=== PATIENT | male | born 1985 | race Caucasian/White ===

== ENCOUNTER 2021-04-03 20:37 | Emergency (ER) | payer SELFPAY ==
[~2021-04-03] VITALS: Ht 182.9 cm; Wt 77.1 kg
--- NOTE | 2021-04-03 20:41 | NUR ---
Pt not in waiting room.
--- NOTE | 2021-04-03 21:01 | NUR ---
Patient in bed, no acute distress noted. C/o bilat leg pain.
--- NOTE | 2021-04-03 21:20 | NUR ---
Patient becoming agitated, requested to remain in his room and await ER MD. Patient states " I hit some bad meth, I want to make sure Im okay".
--- NOTE | 2021-04-03 21:54 | NUR ---
Patient seen by ER MD. Awaiting further disposition for this patient.
--- NOTE | 2021-04-03 22:00 | NUR ---
Patient discharged to home in stable condition. Written and verbal after care instructions given. Patient verbalizes understanding of instructions. Stressed follow up or return to ER for worsening s/s. pATIENT D/C WITH ALL BELONGINGS. dENIES BEING HOMELESS
[2021-04-03 22:04] VITALS: BP 135/81
== END 2021-04-03 22:05 | disposition home or self-care (01) ==
LOC: ER 20:37
DX: F15.10 Other stimulant abuse, uncomplicated (principal); R00.0 Tachycardia, unspecified; F10.10 Alcohol abuse, uncomplicated
CPT/HCPCS: A4663